=== PATIENT | female | born 1990 | race Caucasian/White ===

== ENCOUNTER 2018-03-29 12:42 | Outpatient (CLI) | payer OTHER | END 2018-03-29 12:43 | disposition home or self-care (01) | LOC: MADLAB 12:42 | DX: Z32.00 Encounter for pregnancy test, result unknown (principal) | CPT/HCPCS: 36415; 84702 ==

== ENCOUNTER 2024-02-05 12:58 | Emergency (ER) | payer SELFPAY | END 2024-02-05 15:06 | disposition home or self-care (01) | LOC: MADERS 12:58 | DX: S82.831A Other fracture of upper and lower end of right fibula, initial encounter for closed fracture (principal); F17.210 Nicotine dependence, cigarettes, uncomplicated; X50.0XXA Overexertion from strenuous movement or load, initial encounter ==